=== PATIENT | male | born 1960 | race Caucasian/White ===

== ENCOUNTER 2017-07-09 06:02 | Day surgery (SDC) | payer BC ==
[~2017-07-09 06:02] MED LIST: Buffered Lidocaine 0.9% SYRIN* 5 ML/SYR SYRINGE INTRADERM ONE; Dexamethasone TAB* 4 MG PO ONE; Famotidine IV* 10 MG/ML 2 ML (20 mg) IV ONE; Ondansetron INJ* 2 MG/ML VIAL IV PRN; PROCHLORPERAZINE INJ 5 MG/ML 2 ML VIAL IV PRN; fentaNYL* 50 MCG/ML 2 ML VIAL (100 MCG VIAL) IV PRN; oxyCODONE TAB* 5 MG TAB PO PRN
[2017-07-09] MEDS ORDERED: Famotidine IV* 10 MG/ML 2 ML (20 mg) ONE (06:20)
[2017-07-09] MEDS ORDERED: Dexamethasone TAB* 4 MG ONE (06:20)
[2017-07-09] MEDS ORDERED: Buffered Lidocaine 0.9% SYRIN* 5 ML/SYR SYRINGE ONE (06:21)
[2017-07-09] MEDS ORDERED: ceFAZolin 2 GM PREMIX (*) 2 GM/50 ML BAG IVPB ONE (06:21)
[2017-07-09] MEDS ORDERED: Bupivacaine 0.25% SDV* 30 ML ONE (07:30)
[2017-07-09] MEDS ORDERED: KETAMINE HCL* 50 MG/ML 10 ML VIAL ONE (07:31)
[2017-07-09] MEDS ORDERED: Midazolam* 1 MG/ML 5 ML VIAL (5 MG) ONE (07:31)
[2017-07-09] MEDS ORDERED: fentaNYL* 50 MCG/ML 2 ML VIAL (100 MCG VIAL) ONE (07:31)
[2017-07-09] MEDS ORDERED: Lidocaine 2% PF * 5 ML VIAL ONE (08:19)
[2017-07-09] MEDS ORDERED: hydrALAZINE IV* 20 MG/ML VIAL ONE (08:19)
[2017-07-09] MEDS ORDERED: Propofol* 10 MG/ML 20 ML BTL IV PUSH ONE (08:19)
[2017-07-09] MEDS ORDERED: Ondansetron INJ* 2 MG/ML VIAL ONE (08:19)
[2017-07-09] MEDS ORDERED: Dexamethasone IV* 4 MG/ML 1 ML (4 MG) ONE (08:19)
[2017-07-09 09:11] VITALS: BP 122/68
--- NOTE | 2017-07-10 01:10 | OP ---
OPERATIVE REPORT: DATE OF OPERATION: 07/09/17 - [facility] DATE OF : 58 SURGEON: Chris Stock MD. ASSISTANTS: VIVIANA Brown. and VIVIANA Hinkle An financial legal assistant was needed for the entirety of the procedure to aid in positioning of the arm and retraction. ANESTHESIOLOGIST: Dr. Spain. ANESTHESIA: General. PRE-OP DIAGNOSES: Right carpal and cubital tunnel syndromes. POST-OP DIAGNOSES: Right carpal and cubital tunnel syndromes. OPERATIVE PROCEDURE: 1. Right open carpal tunnel release. 2. Right in situ cubital tunnel release. INDICATIONS: Isidoro has significant SLAC wrist bilaterally. I talked to him about his options. Most of his symptoms are coming from his peripheral nerve compression and he could not miss the time off work for more extensive procedure such as a 4- corner fusion. We had talked about seeing how much relief he gets with the peripheral nerve decompressions. He has pretty severe carpal tunnel syndrome with atrophy. We talked about risks and benefits. He wanted to proceed. ESTIMATED BLOOD LOSS: 2 mL. COMPLICATIONS: None. FINDINGS: As expected. DESCRIPTION OF PROCEDURE: Isidoro was seen in the preoperative holding area. The correct site, side and procedure were identified. We came back to the operating room where anesthesia was induced. The arm was prepped and draped in the usual fashion. I began by making a 2 to 3 cm incision longitudinally in a standard location for an open carpal release. Dissection was carried down through the subcutaneous tissue in the palmar fascia. Transverse carpal ligament was released right off the radial aspect of the hook of the hamate. The release was completed distally until there was absolutely no compression there. The release was then carried proximally by releasing the subcutaneous tissue and fascia and retracting that volarly and superficially with the Elmer retractor; and under direct visualization, the tenotomy scissors were used to release the remainder of the transverse carpal ligament and the distal antebrachial fascia to a level several centimeters proximal to the wrist flexion crease. The wound was then irrigated and the skin was closed with 4-0 nylon suture. I then made a curvilinear incision centered over the Riggs's ligament on the posteromedial elbow. This was carried proximally and distally for a few centimeters in either direction in line with the ulnar nerve. Dissection was carried down through the subcutaneous tissue proximally with the Bovie and then distally with the tenotomy scissors. The medial antebrachial cutaneous nerve was identified and retracted and protected throughout the case. I then began the decompression just on the proximal aspect of Riggs's ligament and unroofed the nerve using the tenotomy scissors. This was carried proximally and passed 8 cm proximal to the medial epicondyle where the arcade of [place] was released. The Riggs's ligament was then released distally. Superficial FCU fascia was then released. The two heads of the FCU were split and the subfascial layer was released. I then checked everything. Once there was absolutely no compression on the nerve, I flexed and extended the elbow multiple times. It did not subluxate. I therefore irrigated out the wound. Cautery was used to obtain hemostasis. The subcutaneous tissue was reapproximated with 3-0 Vicryl, the skin was closed with 4- 0 nylon suture. All the operative wounds were infiltrated with 0.25% Marcaine. The wounds were dressed with Xeroform, 4x4, sterile Webril and ABD at the elbow, and then an Butch bandage was placed. He was then awoken up and taken to the recovery room in stable condition. [id number]/[facility] #: [id number] LUIZ
== END 2017-07-09 13:17 | disposition home or self-care (01) ==
LOC: OR 06:02
PROVIDERS: ATTEND Orthopaedic Surgery Hand Surgery
DX: G56.01 Carpal tunnel syndrome, right upper limb (principal); G56.21 Lesion of ulnar nerve, right upper limb; I25.10 Atherosclerotic heart disease of native coronary artery without angina pectoris; I25.2 Old myocardial infarction; Z95.5 Presence of coronary angioplasty implant and graft; J44.9 Chronic obstructive pulmonary disease, unspecified; I10 Essential (primary) hypertension; K21.9 Gastro-esophageal reflux disease without esophagitis
CPT/HCPCS: J0360; J0690; J1100; J2250; J2405; J2704; J3010; J8540

== ENCOUNTER 2017-12-05 11:01 | Emergency (ER) | payer BC ==
[2017-12-05 13:04] LABS: ABS Basophils 0 10^3/ul (0-0.2); ABS Eosinophils 0.1 10^3/ul (0-0.6); ABS Lymphocytes 1.2 10^3/ul (1.0-4.8); ABS Monocytes 0.7 10^3/ul (0-0.8); ABS Neutrophils 5.1 10^3/ul (1.5-7.7); ABS Nucleated RBC 0 10^3/ul; Eosinophil % 0.8 % (0-6); Hematocrit 45 % (42-52); Hemoglobin 15.8 g/dl (14.0-18.0); Lymphocyte % 16.6 % (25-47); Mean Corpuscular HGB Conc 35 g/dl (31-36); Mean Corpuscular Hemoglobin 33 pg (27-31); Mean Corpuscular Volume 93 fL (80-94); Mean Platelet Volume 7.2 um3 (7.4-10.4); Nucleated Red Blood Cells % 0; Platelet Count 199 10^3/ul (150-450); Red Blood Count 4.86 10^6/ul (4.0-5.4); Red Cell Distribution Width 13 % (10.5-15)
[2017-12-05 13:10] LABS: INR 0.87 (0.77-1.02)
--- NOTE | 2017-12-05 13:20 | RAD ---
HISTORY: Palpitation COMPARISONS: June 20, 2016 VIEWS: 1: frontal portable view of the chest at 12:55 PM FINDINGS: LINES AND TUBES: None. CARDIOMEDIASTINAL SILHOUETTE: The cardiomediastinal silhouette is normal for portable technique. PLEURA: The costophrenic angles are sharp. No pleural abnormalities are noted. LUNG PARENCHYMA: There is hyperinflation with diffuse emphysematous change there is stable opacification of the right mid lung and left suprahilar lung, without significant change from 2016. ABDOMEN: The upper abdomen is clear. There is no subphrenic gas. BONES AND SOFT TISSUES: No bone or soft tissue abnormalities are noted. IMPRESSION: COPD.
[2017-12-05 13:21] LABS: EGFR Non-African American 62.8 (>60)
[2017-12-05 16:43] VITALS: BP 152/88
--- NOTE | 2017-12-05 18:42 | ED ---
Isidro Chatman Julia, scribed for Rian Deras MD on 12/05/17 at 1146 . Palpitations / Dysrhythmia - HPI Summary HPI Summary: This patient is a 57 year old M presenting to [facility] with a chief complaint of intermittent skipping heart beat for the past two days. Patient denies chest pain. He states he could feel skipped beats when feeling his radial pulse. Patient states symptoms are relieved by 3 baby ASA, taken earlier this morning. Patient states that he was recently prescribed 150mg of Prednisone daily for COPD treatment. He states the palpitation begin about 3 hours after taking the Prednisone for the past two days. Patient has a history of HTN and CAD. - History of Current Complaint Time Seen by Provider: 12/05/17 11:16 Hx Obtained From: Patient Onset/Duration: Lasting Days Character: Skipped Beats Aggravating: Medication Associated Signs & Symptoms: Negative - Allergy/Home Medications Allergies/Adverse Reactions: Allergies Allergy/AdvReac Type Severity Reaction Status Date / Time codeine Allergy Nausea And Verified 12/05/17 12:05 Vomiting shellfish derived Allergy Shortness Verified 12/05/17 12:06 of Breath CONTRAST DYE Allergy Intermediate Unknown Uncoded 07/24/17 10:26 Reaction Details PMH/Surg Hx/FS Hx/Imm Hx Cardiovascular History: Reports: Hx Angioplasty, Hx Coronary Artery Disease - 1 CARDIAC STENT, Hx Hypertension - ON MEDS Denies: Other Cardiovascular Problems/Disorders Respiratory History: Reports: Hx Chronic Obstructive Pulmonary Disease (COPD), Other Respiratory Problems/Disorders - PNEUMONIA 11 TIMES GI History: Reports: Hx Gastroesophageal Reflux Disease - BARRETTS ESOPH, Hx Hiatal Hernia - ON DAILY MEDS Denies: Other GI Disorders Sensory History: Reports: Hx Cataracts - LEFT Denies: Hx Contacts or Glasses, Hx Hearing Aid Opthamlomology History: Reports: Hx Cataracts - LEFT Denies: Hx Contacts or Glasses Neurological History: Reports: Hx Seizures - Surgical History Surgery Procedure, Year, and Place: cardiac stent, 5 YRS AGO Hx Anesthesia Reactions: No - Immunization History Date of Tetanus Vaccine: 2 years - Family History Known Family History: Positive: Cardiac Disease Negative: Diabetes - Social History Alcohol Use: None Alcohol Amount: 1 BEER/DAY Substance Use Type: Reports: None Smoking Status (MU): Never Smoked Tobacco Have You Smoked in the Last Year: No Review of Systems Negative: Fever Positive: Palpitations. Negative: Chest Pain All Other Systems Reviewed And Are Negative: Yes Physical Exam - Summary Physical Exam Summary: Appearance: The patient is well-nourished in no acute distress and in no acute pain. Skin: The skin is warm and dry and skin color reflects adequate perfusion. HEENT: The head is normocephalic and atraumatic. The pupils are equal and reactive. The conjunctivae are clear and without drainage. Nares are patent and without drainage. Mouth reveals moist mucous membranes and the throat is without erythema and exudate. The external ears are intact. The ear canals are patent and without drainage. The tympanic membranes are intact. Neck: the neck is supple with full range of motion and non-tender. There are no carotid bruits. There is no neck vein distension. Respiratory: Chest is non-tender. Lungs are clear to auscultation and breath sounds are symmetrical and equal. Cardiovascular: Heart is regular rate and rhythm. There is no murmur or rub auscultated. There is no peripheral edema and pulses are symmetrical and equal. Abdomen: The abdomen is soft and non-tender. There are normal bowel sounds heard in all four quadrants and there is no organomegaly palpated. Musculoskeletal: There is no back tenderness noted. Extremities are non-tender with full range of motion. There is good capillary refill. There is no peripheral edema or calf tenderness elicited. Neurological: Patient is alert and oriented to person, place and time. The patient has symmetrical motor strength in all four extremities. Cranial nerves are grossly intact. Deep tendon reflexes are symmetrical and equal in all four extremities. Psychiatric: The patient has an appropriate affect and does not exhibit any anxiety or depression. Triage Information Reviewed: Yes Vital Signs On Initial Exam: Initial Vitals BP 156/102 12/05/17 11:15 Vital Signs Reviewed: Yes Diagnostics - Vital Signs Vital Signs Temp Pulse Resp BP Pulse Ox 12/05/17 16:42 99.0 F 74 16 152/88 98 12/05/17 15:00 68 11 134/85 96 12/05/17 14:30 65 15 147/94 96 12/05/17 14:00 63 22 144/93 95 12/05/17 13:30 63 15 143/92 95 12/05/17 13:00 66 21 148/89 97 12/05/17 12:30 66 16 150/95 96 12/05/17 12:00 72 15 142/105 96 12/05/17 11:37 100.0 F 76 16 154/91 97 12/05/17 11:30 76 19 154/91 96 12/05/17 11:17 69 95 12/05/17 11:15 156/102 - Laboratory Lab Results: Lab Results 12/05/17 12/05/17 12/05/17 Range/Units 12:50 12:50 12:50 WBC 7.0 (3.5-10.8) 10^3/ul RBC 4.86 (4.0-5.4) 10^6/ul Hgb 15.8 (14.0-18.0) g/dl Hct 45 (42-52) % MCV 93 (80-94) fL MCH 33 H (27-31) pg MCHC 35 (31-36) g/dl RDW 13 (10.5-15) % Plt Count 199 (150-450) 10^3/ul MPV 7.2 L (7.4-10.4) um3 Neut % (Auto) 72.1 (38-83) % Lymph % (Auto) 16.6 L (25-47) % [place] % (Auto) 10.2 H (0-7) % Eos % (Auto) 0.8 (0-6) % Baso % (Auto) 0.3 (0-2) % Absolute Neuts (auto) 5.1 (1.5-7.7) 10^3/ul Absolute Lymphs (auto) 1.2 (1.0-4.8) 10^3/ul Absolute Monos (auto) 0.7 (0-0.8) 10^3/ul Absolute Eos (auto) 0.1 (0-0.6) 10^3/ul Absolute Basos (auto) 0 (0-0.2) 10^3/ul Absolute Nucleated RBC 0 10^3/ul Nucleated RBC % 0 INR (Anticoag Therapy) (0.77-1.02) Sodium 137 (133-145) mmol/L Potassium 3.9 (3.5-5.0) mmol/L Chloride 103 (101-111) mmol/L Carbon Dioxide 25 (22-32) mmol/L Anion Gap 9 (2-11) mmol/L BUN 17 (6-24) mg/dL Creatinine 1.19 H (0.67-1.17) mg/dL Est GFR ( Amer) 80.8 (>60) Est GFR (Non-Af Amer) 62.8 (>60) BUN/Creatinine Ratio 14.3 (8-20) Glucose 87 (70-100) mg/dL Lactic Acid (0.5-2.0) mmol/L Calcium 9.9 (8.6-10.3) mg/dL Magnesium 2.2 (1.9-2.7) mg/dL Total Bilirubin 1.40 H (0.2-1.0) mg/dL AST 23 (13-39) U/L ALT 18 (7-52) U/L Alkaline Phosphatase 57 (34-104) U/L Troponin I 0.00 (<0.04) ng/mL B-Natriuretic Peptide 67 ( - 100) pg/mL Total Protein 6.8 (6.4-8.9) g/dL Albumin 4.6 (3.2-5.2) g/dL Globulin 2.2 (2-4) g/dL Albumin/Globulin Ratio 2.1 (1-3) TSH 3.23 (0.34-5.60) mcIU/mL 12/05/17 12/05/17 Range/Units 12:50 12:50 WBC (3.5-10.8) 10^3/ul RBC (4.0-5.4) 10^6/ul Hgb (14.0-18.0) g/dl Hct (42-52) % MCV (80-94) fL MCH (27-31) pg MCHC (31-36) g/dl RDW (10.5-15) % Plt Count (150-450) 10^3/ul MPV (7.4-10.4) um3 Neut % (Auto) (38-83) % Lymph % (Auto) (25-47) % [place] % (Auto) (0-7) % Eos % (Auto) (0-6) % Baso % (Auto) (0-2) % Absolute Neuts (auto) (1.5-7.7) 10^3/ul Absolute Lymphs (auto) (1.0-4.8) 10^3/ul Absolute Monos (auto) (0-0.8) 10^3/ul Absolute Eos (auto) (0-0.6) 10^3/ul Absolute Basos (auto) (0-0.2) 10^3/ul Absolute Nucleated RBC 10^3/ul Nucleated RBC % INR (Anticoag Therapy) 0.87 (0.77-1.02) Sodium (133-145) mmol/L Potassium (3.5-5.0) mmol/L Chloride (101-111) mmol/L Carbon Dioxide (22-32) mmol/L Anion Gap (2-11) mmol/L BUN (6-24) mg/dL Creatinine (0.67-1.17) mg/dL Est GFR ( Amer) (>60) Est GFR (Non-Af Amer) (>60) BUN/Creatinine Ratio (8-20) Glucose (70-100) mg/dL Lactic Acid 1.3 (0.5-2.0) mmol/L Calcium (8.6-10.3) mg/dL Magnesium (1.9-2.7) mg/dL Total Bilirubin (0.2-1.0) mg/dL AST (13-39) U/L ALT (7-52) U/L Alkaline Phosphatase (34-104) U/L Troponin I (<0.04) ng/mL B-Natriuretic Peptide ( - 100) pg/mL Total Protein (6.4-8.9) g/dL Albumin (3.2-5.2) g/dL Globulin (2-4) g/dL Albumin/Globulin Ratio (1-3) TSH (0.34-5.60) mcIU/mL Result Diagrams: 12/05/17 12:50 12/05/17 12:50 Lab Statement: Any lab studies that have been ordered have been reviewed, and results considered in the medical decision making process. - Radiology CXR Radiology Interpretation Completed By: Radiologist - COPD. ED Physician has reviewed this report. - EKG 1125 Cardiac Rate: NL - at 71 BPM EKG Rhythm: Sinus Rhythm EKG Interpretation: probable early repolarization, possible old septal infarct EKG Comparison: No Significant Change - from 06/20/16 Re-Evaluation - Re-Evaluation 1 Re-Evaluation Time: 15:13 Comment: Results discussed with patient. Patient will be discharged. Course/Dx - Course Course Of Treatment: Mr. Bonilla was kept on the monitor while labs and CXR were obtained. He remained stable and was D/C'd To F/U with his PMD. - Diagnoses Provider Diagnoses: Palpitations Discharge - Sign-Out/Discharge Documenting (check all that apply): Discharge - Discharge Plan Condition: Stable Disposition: HOME Patient Education Materials: Heart Palpitations (ED) Referrals: Alyssa Gandhi MD [Primary Care Provider] - 3 Days (Follow up with your Primary Care Provider in 2-3 days.) - Billing Disposition and Condition Condition: STABLE Disposition: HOME The documentation as recorded by the Isidro motley Julia accurately reflects the service I personally performed and the decisions made by me, Rian Deras MD.
== END 2017-12-05 15:30 | disposition home or self-care (01) ==
LOC: ED 11:01
DX: R00.2 Palpitations (principal); R11.2 Nausea with vomiting, unspecified; I25.10 Atherosclerotic heart disease of native coronary artery without angina pectoris; Z87.09 Personal history of other diseases of the respiratory system
CPT/HCPCS: 36415; 71045; 80053; 83605; 83735; 83880; 84443; 84484; 85025; 85610; 93005; 99283

== ENCOUNTER 2019-04-21 19:42 | Emergency (ER) | payer BC ==
[2019-04-21 20:49] LABS: ABS Basophils 0.1 10^3/ul (0-0.2); ABS Eosinophils 0.1 10^3/ul (0-0.6); ABS Lymphocytes 0.9 10^3/ul (1.0-4.8); ABS Monocytes 0.5 10^3/ul (0-0.8); Hematocrit 40 % (42-52); Hemoglobin 13.9 g/dL (14.0-18.0); Lymphocyte % 16.2 %; Mean Corpuscular HGB Conc 35 g/dL (31-36); Mean Corpuscular Hemoglobin 31 pg (27-31); Mean Corpuscular Volume 90 fL (80-94); Mean Platelet Volume 7.5 fL (7.4-10.4); Platelet Count 186 10^3/uL (150-450); Red Blood Count 4.47 10^6 /uL (4.18-5.48); Red Cell Distribution Width 15 % (10-15); White Blood Count 5.6 10^3/uL (3.5-10.8)
[2019-04-21 20:55] LABS: INR 1.02 (0.82-1.09)
[2019-04-21 21:08] LABS: Albumin 4.4 g/dL (3.2-5.2); Albumin/Globulin Ratio 2.1 (1-3); BUN/Creatinine Ratio 11.6 (8-20); Calcium 9.3 mg/dL (8.6-10.3); EGFR Non-African American 61.2 (>60); Globulin 2.1 g/dL (2-4); Potassium 3.7 mmol/L (3.5-5.0); Total Bilirubin 1.4 mg/dL (0.2-1.0); Total Protein 6.5 g/dL (6.4-8.9)
[2019-04-21 21:09] LABS: Troponin I 0.01 ng/mL (<0.04)
--- NOTE | 2019-04-22 00:04 | ED ---
HPI Chest Pain - HPI Summary HPI Summary: Pt is a 59 y/o M presenting to the ED with a chief complaint of chest discomfort onset about 1200 on 04/21/19. The severity increased around 1800, but he did not take anything. Currently, the discomfort is barely there. He reports SOB that he states is from COPD. He denies diaphoresis, nausea, edema, fever, chills, and cough. - History of Current Complaint Chief Complaint: EDChestPainROMI Time Seen by Provider: 04/21/19 23:03 Hx Obtained From: Patient Onset/Duration: Started Hours Ago, Still Present Timing: Constant, Lasting Hours Initial Severity: Moderate Current Severity: None Pain Intensity: 0 Pain Scale Used: 0-10 Numeric Chest Pain Location: Diffuse Chest Pain Radiates: No Aggravating Factor(s): Nothing Alleviating Factor(s): Nothing Associated Signs and Symptoms: Positive: Shortness of Breath. Negative: Fever, Chills, Diaphoresis, Nausea, Cough, Edema - Allergy/Home Medications Allergies/Adverse Reactions: Allergies Allergy/AdvReac Type Severity Reaction Status Date / Time codeine Allergy Nausea And Verified 04/21/19 19:53 Vomiting shellfish derived Allergy Shortness Verified 04/21/19 19:53 of Breath CONTRAST DYE Allergy Intermediate Unknown Uncoded 04/21/19 19:53 Reaction Details PMH/Surg Hx/FS Hx/Imm Hx Previously Healthy: Yes Cardiovascular History: Reports: Hx Angioplasty, Hx Coronary Artery Disease - 1 CARDIAC STENT, Hx Hypertension - ON MEDS Denies: Other Cardiovascular Problems/Disorders Respiratory History: Reports: Hx Chronic Obstructive Pulmonary Disease (COPD), Other Respiratory Problems/Disorders - PNEUMONIA 11 TIMES GI History: Reports: Hx Gastroesophageal Reflux Disease - BARRETTS ESOPH, Hx Hiatal Hernia - ON DAILY MEDS Denies: Other GI Disorders Sensory History: Reports: Hx Cataracts - LEFT Denies: Hx Contacts or Glasses, Hx Hearing Aid Opthamlomology History: Reports: Hx Cataracts - LEFT Denies: Hx Contacts or Glasses Neurological History: Reports: Hx Seizures - Surgical History Surgery Procedure, Year, and Place: cardiac stent, 5 YRS AGO Hx Anesthesia Reactions: No - Immunization History Date of Tetanus Vaccine: 2 years Infectious Disease History: No Infectious Disease History: Denies: Traveled Outside the [place] in Last 30 Days - Family History Known Family History: Positive: Cardiac Disease Negative: Diabetes - Social History Alcohol Use: None Alcohol Amount: 1 BEER/DAY Substance Use Type: Reports: None Smoking Status (MU): Never Smoked Tobacco Have You Smoked in the Last Year: No Review of Systems Negative: Fever, Chills, Skin Diaphoresis Positive: Chest Pain Positive: Shortness Of Breath. Negative: Cough Negative: Nausea All Other Systems Reviewed And Are Negative: Yes Physical Exam - Summary Physical Exam Summary: Constitutional: Well-developed, Well-nourished, Alert. (-) Distressed Skin: Warm, Dry HENT: Normocephalic; Atraumatic Eyes: Conjunctiva normal Neck: Musculoskeletal ROM normal neck. (-) JVD, (-) Stridor, (-) Tracheal deviation Cardio: Rhythm regular, rate normal, Heart sounds normal; Intact distal pulses; The pedal pulses are 2+ and symmetric. Radial pulses are 2+ and symmetric. (-) Murmur Pulmonary/Chest wall: Effort normal. (-) Respiratory distress, (-) Wheezes, (-) Rales Abd: Soft, some reproducible chest wall tenderness, (-) Distension, (-) Guarding , (-) Rebound Musculoskeletal: (-) Edema Lymph: (-) Cervical adenopathy Neuro: Alert, Oriented x3 Psych: Mood and affect Normal Triage Information Reviewed: Yes Vital Signs On Initial Exam: Initial Vitals Temp Pulse Resp BP Pulse Ox 99.1 F 79 16 164/89 97 04/21/19 19:50 04/21/19 19:50 04/21/19 19:50 04/21/19 19:50 04/21/19 19:50 Vital Signs Reviewed: Yes Diagnostics - Vital Signs Vital Signs Temp Pulse Resp BP Pulse Ox 04/21/19 23:12 56 14 177/108 96 04/21/19 23:00 57 18 96 04/21/19 22:51 58 12 178/104 97 04/21/19 22:42 57 12 171/118 97 04/21/19 22:40 56 96 04/21/19 21:31 98.2 F 65 20 136/88 94 04/21/19 19:50 99.1 F 79 16 164/89 97 - Laboratory Lab Results: Lab Results 04/21/19 04/21/19 04/21/19 Range/Units 20:43 20:43 20:43 WBC 5.6 (3.5-10.8) 10^3/uL RBC 4.47 (4.18-5.48) 10^6 /uL Hgb 13.9 L (14.0-18.0) g/dL Hct 40 L (42-52) % MCV 90 (80-94) fL MCH 31 (27-31) pg MCHC 35 (31-36) g/dL RDW 15 (10-15) % Plt Count 186 (150-450) 10^3/uL MPV 7.5 (7.4-10.4) fL Neut % (Auto) 71.3 % Lymph % (Auto) 16.2 % [place] % (Auto) 9.6 % Eos % (Auto) 2.0 % Baso % (Auto) 0.9 % Absolute Neuts (auto) 4.0 (1.5-7.7) 10^3/ul Absolute Lymphs (auto) 0.9 L (1.0-4.8) 10^3/ul Absolute Monos (auto) 0.5 (0-0.8) 10^3/ul Absolute Eos (auto) 0.1 (0-0.6) 10^3/ul Absolute Basos (auto) 0.1 (0-0.2) 10^3/ul Absolute Nucleated RBC 0.0 10^3/ul Nucleated RBC % 0.0 INR (Anticoag Therapy) 1.02 (0.82-1.09) Sodium 141 (135-145) mmol/L Potassium 3.7 (3.5-5.0) mmol/L Chloride 107 (101-111) mmol/L Carbon Dioxide 28 (22-32) mmol/L Anion Gap 6 (2-11) mmol/L BUN 14 (6-24) mg/dL Creatinine 1.21 H (0.67-1.17) mg/dL Est GFR ( Amer) 74.0 (>60) Est GFR (Non-Af Amer) 61.2 (>60) BUN/Creatinine Ratio 11.6 (8-20) Glucose 120 H (70-100) mg/dL Calcium 9.3 (8.6-10.3) mg/dL Total Bilirubin 1.40 H (0.2-1.0) mg/dL AST 25 (13-39) U/L ALT 19 (7-52) U/L Alkaline Phosphatase 75 (34-104) U/L Troponin I 0.01 (<0.04) ng/mL Total Protein 6.5 (6.4-8.9) g/dL Albumin 4.4 (3.2-5.2) g/dL Globulin 2.1 (2-4) g/dL Albumin/Globulin Ratio 2.1 (1-3) Result Diagrams: 04/21/19 20:43 04/21/19 20:43 Lab Statement: Any lab studies that have been ordered have been reviewed, and results considered in the medical decision making process. - EKG 1943 Cardiac Rate: NL - 87bpm EKG Rhythm: Sinus Rhythm ST Segment: Non-Specific Ectopy: None Summary of EKG Findings: EKG at 1943 shows NSR at 87bpm with prolonged OK, normal QRS, normal QTc, normal axis, ST elevation in v1-v3, normal T-waves, overall nonspecific EKG. Chest Pain Course/Dx - Course Course Of Treatment: Pt is a 59 y/o M presenting to the ED with a chief complaint of chest discomfort onset about 1200 on 04/21/19. He reports SOB that he states is from COPD. He denies diaphoresis, nausea, edema, fever, chills, and cough. His physical exam shows some reproducible chest wall tenderness. His lab results show Hgb of 13.9, Hct of 40, Creatinine of 1.21, and total Bilirubin of 1.40. The pt has a heart score of 1. I will wait for a second troponin level to disposition him, as his first one was nml at 0.01. EKG at 1943 shows NSR at 87bpm with prolonged OK, normal QRS, normal QTc, normal axis, ST elevation in v1-v3, normal T-waves, overall nonspecific EKG. Pt's second troponin is nml at 0.01. He will be d/c'ed with dx of chest pain. He is stable and agreeable with this plan. - Diagnoses Provider Diagnoses: Chest pain Discharge - Sign-Out/Discharge Documenting (check all that apply): Patient Departure Patient Received Moderate/Deep Sedation with Procedure: No - Discharge Plan Condition: Stable Disposition: HOME Patient Education Materials: Chest Pain (ED) Print Language: OCCITAN Referrals: Alyssa Gandhi MD [Primary Care Provider] - Additional Instructions: Please follow up with your primary care provider within the next 2-3 days. Return to the emergency department with any new or worsening symptoms. - Billing Disposition and Condition Condition: STABLE Disposition: Home - Attestation Statements Document Initiated by David: Yes Documenting Scribe: Lois Beckham Provider For Whom David is Documenting (Include Credential): Amena Knight MD. Scribe Attestation: ILois, scribed for Amena Hurtado MD. on 04/22/19 at 0518. Scribe Documentation Reviewed: Yes Provider Attestation: The documentation as recorded by the emmanuelibe, Lois Beckham accurately reflects the service I personally performed and the decisions made by me, Amena Hurtado MD. Status of Scribe Document: Viewed
[2019-04-22] MEDS ORDERED: Lisinopril TAB* 10 MG PO ONE (00:32)
[2019-04-22 01:41] VITALS: BP 167/110
== END 2019-04-22 01:41 | disposition home or self-care (01) ==
LOC: ED 19:42
DX: R07.89 Other chest pain (principal); R06.02 Shortness of breath; I10 Essential (primary) hypertension; J44.9 Chronic obstructive pulmonary disease, unspecified; K21.9 Gastro-esophageal reflux disease without esophagitis; K22.70 Barrett's esophagus without dysplasia; K44.9 Diaphragmatic hernia without obstruction or gangrene; Z95.5 Presence of coronary angioplasty implant and graft; Z91.041 Radiographic dye allergy status; Z88.5 Allergy status to narcotic agent; Z91.013 Allergy to seafood
CPT/HCPCS: 36415; 80053; 84484; 85025; 85610; 93005; 99283; A9270-GY

== ENCOUNTER 2019-05-16 08:02 | Observation (INO) | payer BC ==
[2019-05-16] MEDS ORDERED: Diazepam TAB(*) 5 MG ONE (08:57)
[2019-05-16] MEDS ORDERED: diPHENhydraMINE IV* 50 MG/ML 1 ml VIAL (BENADRYL) ONE ×2 (08:57→09:22)
[2019-05-16 08:59] LABS: ABS Basophils 0.1 10^3/ul (0-0.2); ABS Eosinophils 0.1 10^3/ul (0-0.6); ABS Lymphocytes 1.1 10^3/ul (1.0-4.8); ABS Monocytes 0.5 10^3/ul (0-0.8); ABS Neutrophils 3.7 10^3/ul (1.5-7.7); Eosinophil % 1.9 %; Hematocrit 43 % (42-52); Hemoglobin 14.7 g/dL (14.0-18.0); Lymphocyte % 19.9 %; Mean Corpuscular HGB Conc 35 g/dL (31-36); Mean Corpuscular Hemoglobin 31 pg (27-31); Mean Corpuscular Volume 90 fL (80-94); Mean Platelet Volume 7.6 fL (7.4-10.4); Platelet Count 210 10^3/uL (150-450); Red Blood Count 4.71 10^6 /uL (4.18-5.48); Red Cell Distribution Width 14 % (10-15); White Blood Count 5.3 10^3/uL (3.5-10.8)
[2019-05-16 09:16] LABS: Activated Partial Thrombo Time 36.7 seconds (26.0-38.0); INR 0.99 (0.82-1.09)
[2019-05-16 09:17] LABS: Albumin 4.4 g/dL (3.2-5.2); Albumin/Globulin Ratio 2.1 (1-3); BUN/Creatinine Ratio 11.7 (8-20); Calcium 9.5 mg/dL (8.6-10.3); EGFR African American 89.1 (>60); EGFR Non-African American 73.7 (>60); Globulin 2.1 g/dL (2-4); HDL Cholesterol 47.9 mg/dL; Potassium 3.7 mmol/L (3.5-5.0); Total Bilirubin 1.2 mg/dL (0.2-1.0); Total Protein 6.5 g/dL (6.4-8.9)
[2019-05-16] MEDS ORDERED: Aspirin 81 mg CHEW TAB* 81 MG TAB.CHEW ONE ×2 (09:26→09:43)
[2019-05-16] MEDS ORDERED: Heparin 2 UNITS/ML IVPREMIX* 2,000 UNIT/1,000 ML BAG IV ONE ×2 (09:27→10:12)
[2019-05-16] MEDS ORDERED: Lidocaine 1% INJ* 10 MG/ML 30 ML SDV ONE (09:27)
[2019-05-16] MEDS ORDERED: methylPREDNISolone 125 MG* 2 ML VIAL IV ONE (10:00)
[2019-05-16] MEDS ORDERED: VERAPAMIL 2.5 MG/ML 2 ML VIAL ** 5 mg/2 ml ONE (10:10)
[2019-05-16] MEDS ORDERED: fentaNYL* 50 MCG/ML 2 ML VIAL (100 MCG VIAL) ONE (10:10)
[2019-05-16] MEDS ORDERED: Midazolam* 1 MG/ML 5 ML VIAL (5 MG) ONE (10:10)
[2019-05-16] MEDS ORDERED: Heparin(*) 1000 UNIT/ML 10 ML VIAL CATH LAB IV ONE (10:10)
[2019-05-16] MEDS ORDERED: nitroGLYCERIN DRIP* 25,000 MCG/250 ML BTL ONE ×2 (10:11→11:31)
[2019-05-16] MEDS ORDERED: Iodixanol 320 (CONTRAST) 100 ML SDV ONE ×4 (10:21→12:41)
[2019-05-16] MEDS ORDERED: Iohexol 350 (CONTRAST) 200 ML MDV IV ONE (10:21)
[2019-05-16] MEDS ORDERED: Adenosine* 3 MG/ML VIAL ONE (11:12)
[2019-05-16] MEDS ORDERED: Bivalirudin(*) 250 MG VIAL ONE (11:20)
[2019-05-16] MEDS ORDERED: Ticagrelor* 90 MG TAB PO ONE (11:20)
[2019-05-16] MEDS ORDERED: Docusate CAP* 100 MG PO PRN (13:04)
[2019-05-16] MEDS ORDERED: Ondansetron INJ* 2 MG/ML VIAL IV PRN (13:04)
[2019-05-16] MEDS ORDERED: Nitroglycerin TAB 0.4 MG* 0.4 MG TAB SL PRN (13:04)
[2019-05-16] MEDS ORDERED: Acetaminophen TAB* 325 MG PO PRN (13:04)
[2019-05-16] MEDS ORDERED: Ipratropium 0.5MG/2.5ML NEB* 0.5 MG/2.5 ML NEB.SOLN INH PRN (13:15)
[2019-05-16] MEDS ORDERED: NS 0.9% 1000 ML** 1,000 ML IV SCH (13:15)
[2019-05-16] MEDS ORDERED: Albuterol 2.5 MG/3 ML NEB.SOL* (0.083%) INH PRN (13:15)
[2019-05-16] MEDS ORDERED: amLODIPine TAB* 5 MG ONE (13:30)
[2019-05-16] MEDS ORDERED: amLODIPine TAB* 5 MG PO ONE (14:00)
[2019-05-16] MEDS ORDERED: CMCS Pravastatin (NF) 20 MG TAB PO ONE (14:10)
[2019-05-16] MEDS: Mometasone/Formoter 200/5 MDI INH SCH (19:16)
[2019-05-16] MEDS: Ticagrelor* 90 MG TAB PO SCH (20:08)
[2019-05-16] MEDS ORDERED: Melatonin 3 MG TAB PO PRN (22:11)
[2019-05-17 03:54] LABS: ABS Lymphocytes 0.8 10^3/ul (1.0-4.8); ABS Monocytes 0.9 10^3/ul (0-0.8); ABS Neutrophils 11.2 10^3/ul (1.5-7.7); Hematocrit 38 % (42-52); Lymphocyte % 6.2 %; Mean Corpuscular HGB Conc 35 g/dL (31-36); Mean Corpuscular Hemoglobin 31 pg (27-31); Mean Corpuscular Volume 90 fL (80-94); Mean Platelet Volume 7.7 fL (7.4-10.4); Platelet Count 207 10^3/uL (150-450); Red Blood Count 4.17 10^6 /uL (4.18-5.48); Red Cell Distribution Width 14 % (10-15); White Blood Count 12.9 10^3/uL (3.5-10.8)
[2019-05-17 04:09] LABS: Albumin 3.6 g/dL (3.2-5.2); BUN/Creatinine Ratio 16.3 (8-20); Calcium 8.4 mg/dL (8.6-10.3); EGFR African American 109.8 (>60); EGFR Non-African American 90.7 (>60); Globulin 1.8 g/dL (2-4); Potassium 3.7 mmol/L (3.5-5.0); Total Bilirubin 0.8 mg/dL (0.2-1.0); Total Protein 5.4 g/dL (6.4-8.9)
[2019-05-17] MEDS: Mometasone/Formoter 200/5 MDI INH SCH (07:39)
[2019-05-17] MEDS: Ticagrelor* 90 MG TAB PO SCH (08:51)
[2019-05-17] MEDS ORDERED: Lisinopril TAB* 10 MG PO SCH (09:00)
[2019-05-17] MEDS ORDERED: Pantoprazole TAB * 40 MG TAB PO SCH (09:00)
[2019-05-17] MEDS ORDERED: Aspirin 81 mg CHEW TAB* 81 MG TAB.CHEW PO SCH (09:00)
[2019-05-17] MEDS ORDERED: Diltiazem CD CAP* 120 MG PO SCH (09:00)
[2019-05-17 10:36] VITALS: BP 145/85
--- NOTE | 2019-05-17 11:41 | CATH ---
CC: Dr. Keo Levi, [facility]; Dr. Yenny Chaudhari CARDIAC CATHETERIZATION AND AN INTERVENTIONAL REPORT: DATE OF PROCEDURE: 05/16/19 INDICATION FOR PROCEDURE: I asked by Dr. Keo Levi to perform cardiac catheterization in light of abnormal exercise stress echo with profound shortness of breath with distal anterior apical and distal inferior wall hypokinesis induced with exercise, rule out the presence of progressive coronary artery disease with prior history of stent to proximal LAD in 2010. The procedure was coronary arteriography, FFR of the mid LAD with balloon angioplasty of the mid LAD and mid diagonal branch ostial portion and placement of a 2.5 x 26 mm long Orsiro Sirolimus drug-eluting stent overlapped more proximally by a 2.75 x 13 mm long Orsiro Sirolimus drug-eluting stent postdilated in a distal stent to 2.6 to 2.65 mm. CONSENT: The patient was interviewed and examined in the holding area of the molder labels where the risks and benefits were explained. He understood them and wished to proceed. APPROACH UTILIZED: The right radial artery was assessed for size in the holding area and was found to be acceptable and as such, this was the approach taken. EQUIPMENT UTILIZED: 1. Right radial artery sheath was a 6-German Glidesheath Slender. 2. Diagnostic wire utilized was a 260 length Ordonez curved wire. 3. Diagnostic coronary catheter was a TIG4 curved 5-German diagnostic catheter. 4. The interventional guiding catheter was a 6-German Heartrail III IL3.5 curved guide catheter. 5. Interventional wires utilized included multiple 190 cm length AllStar wires in addition to a BMW 190 cm length wire. 6. Balloon angioplasty catheters included a 2.0 x 12 mm long NC Emerge balloon , a 2.0 x 8 mm long NC Emerge balloon, a 2.5 x 12 mm long NC Emerge balloon as well as a 2.5 x 15 mm long NC Emerge balloon. 7. Stents utilized included the 2.5 x 26 mm long Orsiro Sirolimus eluting stent , the 2.75 x 13 mm long Orsiro Sirolimus eluting stent. 8. Support device for stent delivery - a 6-German GuideLiner V3 catheter. 9. Closure device utilized was a regular sized Vasc Band by [employer]. PRE-CARDIAC CATHETERIZATION LABORATORY RESULTS: Hemoglobin and hematocrit of 14.7 and 43 with a platelet count of 210,000. BUN and creatinine of 12 and 1.0. Sodium 138, potassium 3.7, chloride 106, bicarb 26. INR was 0.99. MEDICATIONS GIVEN DURING THE PROCEDURE: These included: 1. Fentanyl 25 mcg intravenously as well as Versed 1.5 mg total intravenously. Of note, the patient did receive a 125 mg of Solu-Cortef and 12.5 mg Benadryl IV for question of prior dye allergy. The patient received adenosine boluses intracoronary for FFR assessment, totalling 192 mcg. 2. Radial artery cocktail included 3000 units of heparin, 300 mcg of nitroglycerin, and 3 mg of verapamil. Additional heparin utilized was total of 4000 units. Brilinta 180 mg crushed was given to the patient as well. DESCRIPTION OF PROCEDURE: The patient was brought to the cardiovascular laboratory where a formal time-out was performed. He was prepped and draped in a sterile fashion, and under ultrasound guidance, the right radial artery was cannulated and the sheath was placed. Coronary arteriography was performed utilizing the TIG4 catheter. Following this, the decision was made to perform FFR of the mid LAD lesion. FFR was performed after ACT was checked and heparin therapy was administered to have therapeutic range. FFR documented that the mid lesion be significant in the LAD. As such, the decision was made to intervene into the mid LAD as well as the ostium of the diagonal branch. Both arteries were wired separately and kissing balloon angioplasty was performed utilizing a 2.0 x 8 mm long NC Emerge balloon in the ostium and diagonal branch and a 2.0 x 12 mm long balloon in the LAD. Following this, attempts were made to deliver a Synergy drug- eluting stent into the mid LAD and they were unsuccessful. Further balloon angioplasty was performed to the mid LAD followed by eventually able to deliver the 2.5 x 26 mm long drug-eluting stent into the mid LAD. This was then overlapped more proximally with a 2.75 x 13 mm long drug-eluting stent. Post stent deployment balloon inflations were performed to the distal stent to high pressures. After that, the artery was assessed for result. The total contrast used was 275 cc of Visipaque dye. The radiation exposure included 31.7 minutes of fluoro time. The air kerma radiation was 3188 milligray. The DAP radiation was 16,739 microgray/m2. RESULTS: CORONARY ARTERIOGRAPHY: A. Right coronary artery - the right coronary artery had minimal luminal irregularities throughout the course of the vessel with no evidence of significant obstruction. B. Left coronary artery: 1. Left main - widely patent with no significant obstruction. Of note, there is calcium noted in the mid to distal left main region. 2. Left anterior descending artery - the left anterior descending artery proximal to mid portion had heavy calcification noted. A prior stent is noted in the proximal portion of this vessel. There is no evidence of significant in- stent restenosis. The mid portion of the LAD supplied a bifurcating diagonal branch whose caliber appeared to be at most 2 mm. At the takeoff of this diagonal branch, the LAD appeared to have a 70% to 75% lesion noted in its worst view. The diagonal branch appeared to have an ostial narrowing, which was difficult to assess, but in some view, has appeared to be as much as 70%. The proximal portion of the diagonal branch appeared to have a segment of 55-60 % stenosis before it bifurcated. Of note, it is not a long vessel. The continuation of the LAD supplied the apical region and turned on to the distal inferior wall. 3. Circumflex artery - a nondominant vessel supplying a thin first obtuse marginal branch followed by second thin obtuse marginal branch with a moderate sized mid bifurcating obtuse marginal branch before the last low lying posterior left ventricular branch. There were minimal luminal irregularities seen in the proximal portion of the circumflex with a degree of narrowing at most being 15%. FRACTIONAL FLOW RESERVE ANALYSIS OF MID LEFT ANTERIOR DESCENDING ARTERY LESION: Fractional flow reserve analysis revealed FFR value of 0.79 consistent with hemodynamically significant lesion. INTERVENTION INTO THE MID LAD: A. Intervention into mid LAD significant 70% to 75% lesion with with balloon angioplasty and placement of a 2.5x26 mm Orsirio drug eluting stent, overlapped proximally with a 2.75x12 mm Orsirio drug eluting stent both dilated with high pressure to achieve 2.6-2.65 mm in distal stent and 2.8 in proximal stent with residual stenosis of less than 10% JEREMY 3 flow and no dissection seen. B. Balloon angioplasty of the ostium of the mid diagnoal branch with a residual stenosis of 40%. OVERALL ASSESSMENT: Successful intervention into mid portion of LAD following a positive fractional flow reserve analysis. At this point in time, aggressive management with dual-antiplatelet therapy including Brilinta and baby aspirin therapy will be pursued. Of note, one of the biggest problems is that the patient has been intolerant of multiple statins in the past. He has not been tried on pravastatin and as such, we will start a low dose of pravastatin 10 mg a day, but I strongly urge consideration for the injectable anticholesterol agent in him documenting multiple reported intolerance to statins. This should be pursued in the very near future and should be discussed by Dr. Levi in the office. Clearly, we need to control as many risk factors as possible. Further management for his cardiac conditions will be carried out by Dr. Levi when he sees him back in followup in approximately 2 to 3 weeks after discharge. Next week, he will see Dr. David Vasquez, my partner, for evaluation of wound check. One other issue is his utilization of Cialis, which would prevent us from being allowed to utilize nitroglycerin preparations in him. I would strongly urge consideration to switch to a different agent such that nitroglycerin could be administered if needed. I did have a lengthy discussion of this with the patient and asked him to discuss this with his primary doctor, Dr. Yenny Chaudhari. I also explained to him how important it is that should he present to the hospital with an unstable cardiac situation, he must tell the hospital emergency room physician whether or not he is still taking Cialis and when he took his last dose. [id number]/[facility] #: [id number] MTDD
--- NOTE | 2019-05-17 11:48 | DS ---
CC: Dr. Yenny Chaudhari; Dr. Levi DISCHARGE SUMMARY: DATE OF ADMISSION: 05/16/19 DATE OF DISCHARGE: 05/17/19 FINAL DIAGNOSIS: Angina pectoris/abnormal stress echocardiogram study. SECONDARY DIAGNOSES: 1. Coronary artery disease. 2. Essential hypertension. 3. Hyperlipidemia. 4. Chronic obstructive lung disease. 5. Gastroesophageal reflux. 6. Aleman's esophagus. DISCHARGE MEDICATIONS: 1. Albuterol inhaler q.6 hours as needed. 2. Aspirin 81 mg a day. 3. Budesonide/formoterol 1 puff twice a day. 4. Cartia XT 120 mg a day. 5. Ipratropium q.6 hours. 6. Lisinopril reportedly 10 mg a day. 7. Pantoprazole 40 mg a day. 8. Cialis 5 mg daily (according to the patient, he takes this for urinary flow problems). 9. Vitamin B12 once a month. 10. Vitamin D. 11. Melatonin. 12. Pravastatin 10 mg a day. 13. Ticagrelor 90 mg twice a day. HOSPITAL COURSE: The patient is a pleasant 59-year-old gentleman with a known history of coronary artery disease with stent placed in his proximal LAD for an anterior wall myocardial infarction in 2010. He had undergone an abnormal stress echocardiogram test demonstrating distal anterior apical and distal inferior wall hypokinesis. He had profound shortness of breath with this with decreased exercised capacity compared to prior stress test. Dr. Levi had recommended cardiac catheterization. He underwent cardiac catheterization on 05/16/19, which revealed mild in-stent restenosis in distal portion of the stent proximally with development of progressive disease in mid LAD at the take-off of a mid diagonal branch. The mid diagonal branch was somewhat small in caliber and bifurcating short in nature, but had an ostial narrowing as well as a proximal narrowing. The LAD at that point did have an eccentric narrowing noted. FFR was performed to the LAD and found to be abnormal and as such intervention was then carried out to the LAD and the ostium of the diagonal branch with kissing balloons followed by stenting of the LAD. Overnight, he has done well, has been up and about, and denies any specific chest, throat, jaw or arm discomfort or significant shortness of breath. He does have a history of chronic shortness of breath that he feels is based on his underlying chronic obstructive lung disease. PHYSICAL EXAMINATION: Well-developed gentleman in no acute distress. Vital signs reveal blood pressure 130/72, pulse in the 60 to 80 range, afebrile, O2 saturation of 98% on room air. Neck was supple. No increased JVP. Lungs were fairly clear to A and P. Heart had a regular rate and rhythm. No significant murmurs. Abdomen: Soft, nontender. Extremities: Without edema. The right radial artery was well healed. There was no bruit. There was excellent antegrade flow by reverse Barbeau sign. Neuro: The patient is alert, oriented with normal mentation. Musculoskeletal: The patient moves all extremities appropriately. Psychological: The patient with appropriate affect. DIAGNOSTIC STUDIES/LAB DATA: Laboratory results reveal white count 12,900, hemoglobin of 13, hematocrit of 38, platelet count of 207,000. Sodium 139, potassium 3.7, chloride 109, bicarb 25, BUN and creatinine 14 and 0.8. EKG revealed Q waves in V1 and V2 that were old in nature with nonspecific T-wave changes otherwise. Isidoro is stable now post intervention into LAD. Of note, the mid diagonal branch still does have a significant proximal lesion. It is a small-caliber vessel and intervention into this area would be most likely difficult to carry out our best. For now, we will continue his medical management with his Cartia 120 mg a day that could be increased to 240 mg a day as needed. Of note, in the past, he has been intolerant of most statin agents and during this hospitalization, we have started him on low-dose pravastatin at 10 mg a day. This should be followed up by Dr. Chaudhari or Dr. Levi with a cholesterol check to make sure that it is working if he is able to tolerate it. If he cannot tolerate this drug as well, I strongly recommend that he have one of the injectable agents pursued to try to lower his cholesterol so as to avoid development in-stent restenosis as well as progressive disease in the diagonal branch. At the time of discharge, he was given an education booklet and a stent card as well. He has a scheduled office wound check appointment next week with my partner, Dr. Vasquez. He will then have a followup appointment with Dr. Levi a week to two after that. One other important issue is that the patient is currently on Cialis that he states is due to helping urinary flow. Obviously on Cialis, he cannot take any nitroglycerin preparations, which also include nitroglycerin sublingually should he have any anginal episodes. I would urge his family doctor, Dr. Yenny Chaudhari to pursue some other agent that would not have the interaction with nitroglycerin. We will leave that to her discretion to schedule an appointment to discuss this. The patient was stable at the time of discharge and will be discharged home. [id number]/[facility] #: [id number] LUIZ
[2019-05-17] MEDS ORDERED: CMCS Pravastatin (NF) 20 MG TAB PO SCH (17:00)
== END 2019-05-17 10:30 | disposition home or self-care (01) ==
LOC: CHICATH 08:02 → ICU 13:25
PROVIDERS: ADMIT Internal Medicine Cardiovascular Disease; ATTEND Internal Medicine Cardiovascular Disease
DX: I25.119 Atherosclerotic heart disease of native coronary artery with unspecified angina pectoris (principal); I10 Essential (primary) hypertension; E78.5 Hyperlipidemia, unspecified; J44.9 Chronic obstructive pulmonary disease, unspecified; K21.9 Gastro-esophageal reflux disease without esophagitis; K22.70 Barrett's esophagus without dysplasia; Z79.82 Long term (current) use of aspirin; Z79.899 Other long term (current) drug therapy; I25.2 Old myocardial infarction; R07.9 Chest pain, unspecified; K44.9 Diaphragmatic hernia without obstruction or gangrene; E78.00 Pure hypercholesterolemia, unspecified; R06.02 Shortness of breath; R94.31 Abnormal electrocardiogram [ECG] [EKG]
CPT/HCPCS: 36415; 76937; 80053; 80061; 82550; 85025; 85347; 85610; 85730; 87641; 93005; 93454; 94640; 96360; 96361; 99156; 99157; A9270-GY; C1725; C1769; C1874; C9600-LD; G0378; J0153; J0583; J1200; J1644; J2250; J2930; J3010

== ENCOUNTER 2021-06-25 15:58 | Inpatient (IN) ==
[2021-06-25 16:26] LABS: ABS Eosinophils 0.1 10^3/ul (0-0.6); ABS Monocytes 0.8 10^3/ul (0-0.8); ABS Neutrophils 6.7 10^3/ul (1.5-7.7); Eosinophil % 0.7 %; Hematocrit 38 % (42-52); Hemoglobin 13.3 g/dL (14.0-18.0); Lymphocyte % 11.9 %; Mean Corpuscular HGB Conc 35 g/dL (31-36); Mean Corpuscular Hemoglobin 32 pg (27-31); Mean Corpuscular Volume 91 fL (80-94); Mean Platelet Volume 7.4 fL (7.4-10.4); Platelet Count 236 10^3/uL (150-450); Red Blood Count 4.15 10^6 /uL (4.18-5.48); Red Cell Distribution Width 13 % (10-15); White Blood Count 8.7 10^3/uL (3.5-10.8)
[2021-06-25 16:45] LABS: ALT 18 U/L (7-52); AST 27 U/L (13-39); Albumin/Globulin Ratio 1.9 (1-3); Alkaline Phosphatase 95 U/L (35-149); Anion Gap 10 mmol/L (2-11); Blood Urea Nitrogen 13 mg/dL (6-24); CO2 Carbon Dioxide 23 mmol/L (22-32); Calcium 8.8 mg/dL (8.6-10.3); Chloride 102 mmol/L (101-111); Globulin 2.1 g/dL (2-4); Glucose 86 mg/dL (70-100); INR 1.1 (0.86-1.15); Sodium 135 mmol/L (135-145); Total Protein 6.1 g/dL (6.4-8.9)
[2021-06-25 17:07] LABS: Troponin I 0.03 ng/mL (<0.03)
[2021-06-25 18:50] LABS: Magnesium 1.8 mg/dL (1.9-2.7)
[2021-06-25 19:30] LABS: Troponin I 0.03 ng/mL (<0.03)
[2021-06-25 22:50] LABS: Rapid COVID-19 Molecular Undetected (Undetected)
[2021-06-25 22:51] LABS: Troponin I 0.03 ng/mL (<0.03)
[2021-06-25] MEDS ORDERED: Furosemide 40 mg/4 ml IV VIAL IV SLOW PU ONE (23:13)
[2021-06-25] MEDS ORDERED: Albuterol 2.5mg/3 ml (0.083%) NEB.SOLN INH PRN (23:20)
[2021-06-25] MEDS ORDERED: Azithromycin 500 mg/250 ml NS 500 MG/250 ML BAG IVPB SCH (23:45)
[2021-06-26] MEDS: cefTRIAXone 1 gm/50 mL NS BAG 1 GM/50 ML BAG IVPB SCH ×2 (00:20→20:54)
[2021-06-26] MEDS: Enoxaparin 40 MG/0.4 ML SYR SUBCUT SCH ×2 (00:21→20:54)
[2021-06-26] MEDS: Aspirin EC 81 mg TAB.EC (enteric coated) PO SCH ×2 (00:21→08:02)
[2021-06-26 06:33] LABS: Anion Gap 11 mmol/L (2-11); CO2 Carbon Dioxide 30 mmol/L (22-32); Chloride 100 mmol/L (101-111); Sodium 141 mmol/L (135-145)
[2021-06-26 06:38] LABS: Blood Urea Nitrogen 12 mg/dL (6-24); Glucose 81 mg/dL (70-100)
[2021-06-26 07:02] LABS: Troponin I 0.04 ng/mL (<0.03)
[2021-06-26] MEDS: Mometasone/Formoter 100/5 MDI INH SCH ×2 (07:40→19:41)
[2021-06-26 09:21] LABS: ABS Eosinophils 0.1 10^3/ul (0-0.6); ABS Monocytes 0.7 10^3/ul (0-0.8); ABS Neutrophils 4.7 10^3/ul (1.5-7.7); Eosinophil % 1.1 %; Hematocrit 40 % (42-52); Hemoglobin 14.2 g/dL (14.0-18.0); Lymphocyte % 15.2 %; Mean Corpuscular HGB Conc 35 g/dL (31-36); Mean Corpuscular Hemoglobin 32 pg (27-31); Mean Corpuscular Volume 92 fL (80-94); Mean Platelet Volume 7.9 fL (7.4-10.4); Platelet Count 231 10^3/uL (150-450); Red Blood Count 4.42 10^6 /uL (4.18-5.48); Red Cell Distribution Width 13 % (10-15); White Blood Count 6.5 10^3/uL (3.5-10.8)
[2021-06-26 09:37] LABS: HDL Cholesterol 59.9 mg/dL
[2021-06-26] MEDS ORDERED: Magnesium Sulfate IV 3 GM in NS 0.9% 100 ml BAG 100 ML IVPB ONE (09:52)
[2021-06-26] MEDS ORDERED: Potassium Chlor 20 meq TAB.ER PO ONE (09:54)
[2021-06-26 10:20] LABS: Phosphorus 3.6 mg/dL (2.5-5.0)
[2021-06-26 13:06] LABS: Troponin I 0.03 ng/mL (<0.03)
[2021-06-26] MEDS: Furosemide 40 mg/4 ml IV VIAL IV SCH (20:54)
[2021-06-26] MEDS ORDERED: Metoclopramide 5 MG/ML VIAL (10 mg) IV ONE (21:41)
[2021-06-27 06:05] LABS: Hematocrit 43 % (42-52); Hemoglobin 15.2 g/dL (14.0-18.0); Mean Corpuscular HGB Conc 35 g/dL (31-36); Mean Corpuscular Hemoglobin 32 pg (27-31); Mean Corpuscular Volume 91 fL (80-94); Mean Platelet Volume 7.7 fL (7.4-10.4); Platelet Count 231 10^3/uL (150-450); Red Blood Count 4.72 10^6 /uL (4.18-5.48); Red Cell Distribution Width 13 % (10-15); White Blood Count 5.7 10^3/uL (3.5-10.8)
[2021-06-27 06:21] LABS: Potassium 3.6 mmol/L (3.5-5.0)
[2021-06-27] MEDS: Mometasone/Formoter 100/5 MDI INH SCH (07:23)
[2021-06-27] MEDS ORDERED: Perflutren Lipid Microsphere 3 ML VIAL ONE (08:25)
[2021-06-27] MEDS: Aspirin EC 81 mg TAB.EC (enteric coated) PO SCH (08:35)
[2021-06-27] MEDS: Furosemide 40 mg/4 ml IV VIAL IV SCH (08:35)
[2021-06-27 11:28] VITALS: BP 117/73
== END 2021-06-27 14:45 | disposition home or self-care (01) | DRG 115 ==
LOC: ED 15:58 → SUATTDRO 06-26 00:18 → MEDTELE 06-26 00:18
PROVIDERS: ADMIT Internal Medicine; ATTEND Internal Medicine

== ENCOUNTER 2022-06-30 06:00 | Observation (INO) ==
[~2022-06-30 06:00] MED LIST changes: -Buffered Lidocaine 0.9% SYRIN* 5 ML/SYR SYRINGE INTRADERM ONE; +Buffered Lidocaine 1% SYRIN 1 ml INTRADERM ONE; -Dexamethasone TAB* 4 MG PO ONE; +Famotidine IV 10 MG/ML 2 ml VIAL (20 mg) IV ONE; -Famotidine IV* 10 MG/ML 2 ML (20 mg) IV ONE; +Lactated Ringers 1000 ml BAG 1,000 ML IV SCH; -Ondansetron INJ* 2 MG/ML VIAL IV PRN; -PROCHLORPERAZINE INJ 5 MG/ML 2 ML VIAL IV PRN; -fentaNYL* 50 MCG/ML 2 ML VIAL (100 MCG VIAL) IV PRN; -oxyCODONE TAB* 5 MG TAB PO PRN
[2022-06-30] MEDS ORDERED: Famotidine IV 10 MG/ML 2 ml VIAL (20 mg) ONE (06:19)
[2022-06-30] MEDS ORDERED: ceFAZolin 2 GM PREMIX 2 GM/50 ML BAG ONE (06:19)
[2022-06-30] MEDS ORDERED: Buffered Lidocaine 1% SYRIN 1 ml INTRADERM ONE (06:19)
[2022-06-30] MEDS ORDERED: Propofol 10 mg/ml 100 ML BTL 100 ML ONE (06:45)
[2022-06-30] MEDS ORDERED: Acetaminophen IV 1 GM/100ML 1,000 MG/100 ML BAG IV ONE (06:45)
[2022-06-30] MEDS ORDERED: Midazolam 5 mg/5 ml VIAL 1 mg/ml 5 ml VIAL (5 mg) ONE (06:57)
[2022-06-30] MEDS ORDERED: fentaNYL 100 mcg/2 ml 50 MCG/ML VIAL ONE (06:57)
[2022-06-30] MEDS ORDERED: Phenylephrine IV 10 MG/ML 1 ml VIAL ONE (07:00)
[2022-06-30] MEDS ORDERED: Dexamethasone IV 4 MG/ML VIAL 1 ml VIAL ONE (07:00)
[2022-06-30] MEDS ORDERED: Ondansetron 4 mg VIAL 2 MG/ML 2 ml VIAL ONE (07:00)
[2022-06-30] MEDS ORDERED: Lidocaine 2% PF 5 ML VIAL ONE (07:00)
[2022-06-30] MEDS ORDERED: ROPIVACAINE 5 MG/ML 30 ML BTL (0.5%) ONE (07:14)
[2022-06-30] MEDS ORDERED: Bupivacaine 0.5% SDV PF 30ML VIAL ONE ×2 (07:41→08:36)
[2022-06-30] MEDS ORDERED: Naloxone 0.4 mg VIAL 0.4 mg/ml 1 ml VIAL IV PRN (08:24)
[2022-06-30] MEDS ORDERED: fentaNYL 100 mcg/2 ml 50 MCG/ML VIAL IV PRN (08:24)
[2022-06-30] MEDS ORDERED: Ondansetron 4 mg VIAL 2 MG/ML 2 ml VIAL IV PRN ×2 (08:24→10:37)
[2022-06-30] MEDS ORDERED: Morphine 2 MG/ML SYRINGE IV PRN (10:37)
[2022-06-30] MEDS ORDERED: Ondansetron ODT 4 mg TAB 4 MG TAB PO PRN (10:37)
[2022-06-30] MEDS ORDERED: Lactulose 30 ml UDC PO PRN (10:37)
[2022-06-30] MEDS ORDERED: Magnesium Hydroxide LIQ 30 ML UDC PO PRN (10:37)
[2022-06-30] MEDS ORDERED: ceFAZolin 1 GM ADVAN 1 GM in NS 0.9% 50 ML 50 ML IVPB SCH (11:00)
[2022-06-30] MEDS ORDERED: Albuterol HFA INHALER 8 gm MDI INH PRN (11:31)
[2022-06-30] MEDS: Lactated Ringers 1000 ml BAG 1,000 ML IV SCH ×2 (12:30→23:34)
[2022-06-30] MEDS: ceFAZolin 1 GM ADVAN 1 GM in NS 0.9% 50 ML 50 ML IVPB SCH ×2 (16:05→23:37)
[2022-06-30] MEDS: Mometasone/Formoter 200/5 MDI INH SCH (19:00)
[2022-06-30] MEDS: Magnesium Hydroxide LIQ 30 ML UDC PO SCH (20:17)
[2022-07-01 06:58] LABS: Hematocrit 32 % (42-52); Hemoglobin 11.2 g/dL (14.0-18.0); Mean Platelet Volume 7.3 fL (7.4-10.4); Platelet Count 237 10^3/uL (150-450)
[2022-07-01] MEDS: Mometasone/Formoter 200/5 MDI INH SCH ×2 (07:07→19:12)
[2022-07-01 07:24] LABS: Calcium 8.5 mg/dL (8.6-10.3); Potassium 4.2 mmol/L (3.5-5.0); eGFR CKD-EPI 92.3 (>60)
[2022-07-01] MEDS: ceFAZolin 1 GM ADVAN 1 GM in NS 0.9% 50 ML 50 ML IVPB SCH (07:46)
[2022-07-01] MEDS: Magnesium Hydroxide LIQ 30 ML UDC PO SCH (08:45)
[2022-07-01] MEDS ORDERED: Vitamin THERAPEUTIC TAB PO SCH (09:00)
[2022-07-01] MEDS ORDERED: Aspirin EC 81 mg TAB.EC (enteric coated) PO SCH (09:00)
[2022-07-01 12:37] VITALS: BP 99/53
== END 2022-07-01 13:30 | disposition home or self-care (01) ==
LOC: OR 06:00 → SSU 06:00
PROVIDERS: ADMIT Orthopaedic Surgery Adult Reconstructive Orthopaedic Surgery; ATTEND Orthopaedic Surgery Adult Reconstructive Orthopaedic Surgery